=== PATIENT | male | born 1995 | race Caucasian/White ===

== ENCOUNTER 2016-09-29 17:46 | Emergency (ER) | payer BC ==
[2016-09-29] MEDS ORDERED: Sodium Chloride 0.9% 10 ML Syringe FLUSH PRN (17:57)
[2016-09-29] MEDS ORDERED: Sodium Chloride 0.9% 1,000 ML IV ONE (17:57)
[2016-09-29] MEDS ORDERED: Morphine 4 MG/ML Syringe IVPUSH ONE (17:58)
[2016-09-29 17:59] VITALS: BP 156/128
[2016-09-29] MEDS ORDERED: Bupivacaine 0.25%/EPINEPHrine 1:200,000 30 ML SDV INJECT ONE (18:16)
--- NOTE | 2016-09-29 18:18 | EDM.PDOC ---
ED HPI GENERAL MEDICAL PROBLEM - General Chief Complaint: Laceration Stated Complaint: VIA [facility] Time Seen by Provider: 09/29/16 17:46 Source of Information: Reports: Patient, EMS History Limitations: Reports: No Limitations - History of Present Illness INITIAL COMMENTS - FREE TEXT/NARRATIVE: Daniel is an otherwise healthy 20 year old male who presents to the ED today after putting an axe through his left foot. Patient was chopping wood barefoot when he missed and went into left foot. Patient denies any other injuries, foot pressure bandaged by EMS prior to arrival here. Unsure of last DT. Left Feet Pain Score (Numeric/FACES): 6 - Related Data Allergies Allergy/AdvReac Type Severity Reaction Status Date / Time No Known Allergies Allergy Verified 09/29/16 17:57 Home Meds: Home Meds NK [No Known Home Meds] 09/29/16 [History] ED ROS GENERAL - Review of Systems Review Of Systems: ROS reveals no pertinent complaints other than HPI. ED EXAM, SKIN/RASH Exam: See Below Exam Limited By: No Limitations General Appearance: Alert, WD/WN, No Apparent Distress, Anxious Respiratory/Chest: No Respiratory Distress Cardiovascular: Regular Rate, Rhythm Extremities: Normal Inspection Neurological: Alert, Oriented, CN II-XII Intact Psychiatric: Normal Affect, Normal Mood, Anxious Skin: Warm, Dry, Other (4.5 cm linear laceration to left foot, dorsal aspect between 4th and 3rd metatarsal region. Capillary refill intact, strength is 5/5 , distal and proximal pulses intact. Patient able to move all 5 digits without difficulty. ) Location, Skin: Other (left foot) Course - Vital Signs Text/Narrative:: Pressure dressing removed, wound irrigated well, continues to bleed without pressure, large amounts, no spraying of blood. 1840-spoke with Dr. Topete, podiatry from [facility], recommended placement of horizontal mattress suture and to see if bleeding stops. This was done after injecting with 1% lidocaine with epi, 12 ml. 3 horizontal mattress sutures were placed with no improvement in bleeding. I feel at this time patient needs transfer as we are unable to take of this here, he was accepted by Dr. Topete. Patient remains alert and oriented, denies any pain currently. DT was in 2016. Patient given IV fluids, Ancef, and Morphine here. Xray obtained, ? Navicular fracture, this was discussed with Dr. Topete, also ? distal tibia fracture, patient has no ankle pain and reports prior ankle injury , likely this is what this is from. Patient and parents updated on plan of care and are agreeable, patient will be transferred via ALS in stable condition. HGB stable at this time at 14. Last Recorded V/S: Last Vital Signs Temp 37.3 C 09/29/16 17:57 Pulse 97 09/29/16 17:57 Resp 20 09/29/16 17:57 BP 156/128 H 09/29/16 17:57 Pulse Ox 99 09/29/16 17:57 - Orders/Labs/Meds Orders: Active Orders 24 hr Category Date Time Status Peripheral IV Care [RC] . DIRECTED Care 09/29/16 17:57 Active Foot Comp Min 3V Lt [CR] Stat Exams 09/29/16 17:56 Taken Sodium Chloride 0.9% [Saline Flush] Med 09/29/16 17:57 Active 10 ml FLUSH ASDIRECTED PRN Peripheral IV Insertion Adult [OM.PC] Routine Oth 09/29/16 17:57 Ordered Medication Orders Sodium Chloride (Saline Flush) 10 ml FLUSH ASDIRECTED PRN PRN Reason: Keep Vein Open Last Admin: 09/29/16 18:32 Dose: 10 ml Labs: Laboratory Tests 09/29/16 09/29/16 Range/Units 18:22 18:22 WBC 11.4 H (4.5-11.0) K/uL RBC 5.17 (4.30-5.90) M/uL Hgb 14.3 (12.0-15.0) g/dL Hct 41.9 (40.0-54.0) % MCV 81 (80-98) fL MCH 28 (27-31) pg MCHC 34 (32-36) % Plt Count 323 (150-400) K/uL Neut % (Auto) 70 H (36-66) % Lymph % (Auto) 19 L (24-44) % Elbert % (Auto) 8 H (2-6) % Eos % (Auto) 1 L (2-4) % Baso % (Auto) 2 H (0-1) % Sodium 140 (140-148) mmol/L Potassium 4.0 (3.6-5.2) mmol/L Chloride 103 (100-108) mmol/L Carbon Dioxide 28 (21-32) mmol/L Anion Gap 8.8 (5.0-14.0) mmol/L BUN 14 (7-18) mg/dL Creatinine 0.8 (0.8-1.3) mg/dL Est Cr Clr Drug Dosing 144.84 mL/min Estimated GFR (MDRD) > 60 (>60) Glucose 93 (74-106) mg/dL Calcium 8.5 (8.5-10.1) mg/dL Meds: Medications Generic Name Dose Route Start Last Admin Trade Name Freq PRN Reason Stop Dose Admin Sodium Chloride 10 ml 09/29/16 17:57 09/29/16 18:32 Saline Flush FLUSH 10 ml ASDIRECTED PRN Administration Keep Vein Open Discontinued Medications Generic Name Dose Route Start Last Admin Trade Name Freq PRN Reason Stop Dose Admin Bupivacaine HCl/Epinephrine Bitart 30 ml 09/29/16 18:16 Marcaine 0.25%/Epinephrine 1:200,000 INJECT 09/29/16 18:17 ONETIME ONE Sodium Chloride 1,000 mls @ 999 mls/hr 09/29/16 17:57 09/29/16 18:33 Normal Saline IV 09/29/16 18:57 999 mls/hr .BOLUS ONE Administration Cefazolin Sodium/Dextrose 2 gm 50 mls @ 100 mls/hr 09/29/16 18:56 09/29/16 19 :05 / Premix IV 09/29/16 19:25 100 mls/hr ONETIME ONE Administration Lidocaine/Epinephrine 30 ml 09/29/16 18:20 09/29/16 18:32 Xylocaine 1% With Epinephrine 1:100,000 INJECT 09/29/16 18:21 30 ml ONETIME ONE Administration Morphine Sulfate 4 mg 09/29/16 17:58 09/29/16 18:31 Morphine IVPUSH 09/29/16 17:59 4 mg ONETIME ONE Administration Departure - Departure Time of Disposition: 19:45 Disposition: DC/Tfer to Acute Hospital 02 Condition: Good Clinical Impression: Laceration of foot Qualifiers: Encounter type: initial encounter Laterality: left Qualified Code(s): S91.312A - Laceration without foreign body, left foot, initial encounter - Discharge Information Referrals: PCP,None [Primary Care Provider] - Forms: ED Department Discharge - My Orders Last 24 Hours: My Active Orders 09/29/16 17:56 Foot Comp Min 3V Lt [CR] Stat 09/29/16 17:57 Peripheral IV Care [RC] . DIRECTED Sodium Chloride 0.9% [Saline Flush] 10 ml FLUSH ASDIRECTED PRN Peripheral IV Insertion Adult [OM.PC] Routine - Assessment/Plan Last 24 Hours: My Active Orders 09/29/16 17:56 Foot Comp Min 3V Lt [CR] Stat 09/29/16 17:57 Peripheral IV Care [RC] . DIRECTED Sodium Chloride 0.9% [Saline Flush] 10 ml FLUSH ASDIRECTED PRN Peripheral IV Insertion Adult [OM.PC] Routine
[2016-09-29] MEDS ORDERED: Lidocaine 1% with EPINEPHrine 1:100,000 50 ML MDV INJECT ONE (18:20)
[2016-09-29] MEDS ORDERED: ceFAZolin 2 GM in Premix Bag 1 BAG IV ONE (18:56)
== END 2016-09-29 19:28 ==
LOC: JP.ED 17:46
DX: S91.312A Laceration without foreign body, left foot, initial encounter (principal); W27.8XXA Contact with other nonpowered hand tool, initial encounter
CPT/HCPCS: 12002; 36415; 73630; 80048; 85025; 96361; 96374; 99285; A4217; J0690; J2270; J7040; J7050